=== PATIENT | male | born 1995 | race Two or more races ===

== ENCOUNTER 2017-03-22 17:56 | Emergency (ER) | payer OTHER ==
[~2017-03-22] VITALS: Ht 170.2 cm; Wt 63.5 kg
[2017-03-22] MEDS ORDERED: Bacitracin Oint UD TOPIC ONE (18:15)
--- NOTE | 2017-03-22 18:15 | Emergency Room Report ---
History of Present Illness General Chief Complaint: Skin Rash/Abscess Source: Patient Present Illness HPI 21-year-old male presents to the emergency department complaining of itchy insect bite on the left side of his back in addition to one on the right cheek times one hour. Patient states this occurred while at work and this has happened once before and he had a moderate reaction with the swelling and itching. Patient denies history of anaphylaxis denies difficulty swallowing. Denies lesions/rashes elsewhere on the body. Denies new medications or body washes or creams. Denies swelling of the lips, tongue , throat or airway. Denies wheezing, or shortness of breath. Denies recent travel, recent illness or ill contacts. denies blisters, oral lesions, or sloughing of the skin. last Tetanus is unk. Denies CP, Palpitations, LOC, AMS, dizziness, Changes in Vision , Sensation, paresthesias, or a sudden severe headache. Allergies: Coded Allergies: No Known Allergies (Unverified , 03/22/17) Patient History Past Medical History: see triage record Past Surgical History: none Pertinent Family History: none Immunizations: UTD Reviewed Nursing Documentation: PMH: Agreed, PSxH: Agreed Nursing Documentation-PMH Past Medical History: No Stated History Review of Systems All Other Systems: negative except mentioned in HPI Physical Exam Vital Signs Date Time Temp Pulse Resp B/P (MAP) Pulse Ox O2 Delivery O2 Flow Rate FiO2 03/22/17 18:02 98.1 67 18 130/77 99 Room Air Sp02 EP Interpretation: reviewed, normal General Appearance: no apparent distress, alert, GCS 15, non-toxic Head: normocephalic, atraumatic Eyes: bilateral eye normal inspection, bilateral eye PERRL ENT: hearing grossly normal, normal pharynx, no angioedema, normal voice, other - no stridor Neck: full range of motion Respiratory: normal inspection, lungs clear, normal breath sounds, no wheezing , speaking full sentences Cardiovascular #1: regular rate, rhythm Musculoskeletal: back normal, gait/station normal, normal range of motion Neurologic: alert, oriented x3, responsive, motor strength/tone normal, sensory intact, speech normal Psychiatric: judgement/insight normal, memory normal, mood/affect normal Skin: normal color, warm/dry, well hydrated, rash - discrete 1mm blanching erythematous swollen area of skin on the back and one on the right cheek, no blisters, no vessicles, no purulent d/c , no fluctuance palpated, no significant increased temperature to palpation, no bleeding. Lymphatic: no adenopathy Medical Decision Making PA Attestation Dr. Vasquez is my supervising Physician whom patient management has been discussed with. Diagnostic Impression: Primary Impression: Insect bite Qualified Codes: W57.XXXA - Bitten or stung by nonvenomous insect and other nonvenomous arthropods, initial encounter Additional Impression: Localized rash ER Course 21-year-old male presents to the emergency department complaining of itchy insect bite on the left side of his back in addition to one on the right cheek times one hour. Patient states this occurred while at work and this has happened once before and he had a moderate reaction with the swelling and itching. Patient denies history of anaphylaxis denies difficulty swallowing. Denies lesions/rashes elsewhere on the body. Denies new medications or body washes or creams. Denies swelling of the lips, tongue , throat or airway. Denies wheezing, or shortness of breath. Denies recent travel, recent illness or ill contacts. denies blisters, oral lesions, or sloughing of the skin. last Tetanus is unk. Denies CP, Palpitations, LOC, AMS, dizziness, Changes in Vision , Sensation, paresthesias, or a sudden severe headache. Ddx considered but are not limited to cellulitis, scabies, insect bites, tic bites, spider bites, contact dermatitis, Drug reaction, allergic reaction, fungal infection, lice. Vital signs: are WNL, pt. is afebrile H&PE are most consistent with insect bites and localized allergic reaction, no evidence of airway compromise or anaphylaxis. ORDERS: none required at this time, the diagnosis is clinical ED INTERVENTIONS: -Tdap -Bacitracin topical -hydrocortisone topical d/w pt. conservative treatment, and to follow up with a primary care provider. pt given a list of primary care clinics for follow up. d/w pt. to return to the ED with worsening or new symptoms. DISCHARGE: At this time pt. is stable for d/c to home. Will provide printed patient care instructions, and any necessary prescriptions. Care plan and follow up instructions have been discussed with the patient prior to discharge. Last Vital Signs Date Time Temp Pulse Resp B/P (MAP) Pulse Ox O2 Delivery O2 Flow Rate FiO2 03/22/17 18:02 98.1 67 18 130/77 99 Room Air Disposition: HOME, SELF-CARE Condition: Stable Scripts Bacitracin/Polymyxin B Sulfate (BACITRACIN-POLYMYXIN OINTMENT) 28.35 Gm Oint...g. 1 APPLIC TP BID, #28.3 GM Prov: Jolanta West 03/22/17 Hydrocortisone (Hydrocortisone Cream 2.5%) Y Cream.appl 1 APPLIC TP BID, #28.3 GM Prov: Jolanta West 03/22/17 Diphenhydramine Hcl (BENADRYL ALLERGY) 25 Mg Tablet 25 MG PO Q6HR, #20 TAB Prov: Jolanta West 03/22/17 Patient Instructions: Insect Bite, [id number] Additional Instructions: Take medications as directed. Follow up with a Primary Care Provider in 3-5 days, even if your symptoms have resolved. --Please review list of primary care clinics, if you do not already have a primary care provider Return sooner to ED if new symptoms occur, or current symptoms become worse. Do not drink alcohol, drive, or operate heavy machinery while taking Benadryl as this may cause drowsiness. - Please note that this Emergency Department Report was dictated using [employer] engineer technology software, occasionally this can lead to erroneous entry secondary to interpretation by the dictation equipment. Jolanta West Mar 22, 2017 18:15
[2017-03-22] MEDS ORDERED: HYDROCORTISONE30 G2 TP (18:16)
[2017-03-22] MEDS ORDERED: BENADRYL ALLERG25 M1 PO (18:16)
[2017-03-22] MEDS ORDERED: BACITRACIN-P28.35 GM TP (18:16)
[2017-03-22] MEDS ORDERED: Hydrocortisone 2.5% Oint 30gm TOPIC ONE (18:30)
[2017-03-22] MEDS ORDERED: Tetanus/Diptheria/Pertussis Vaccine 0.5ml Syr IM ONE (18:30)
[2017-03-22 18:46] VITALS: BP 130/77
[2017-03-22 18:49] VITALS: BP 130/77
== END 2017-03-22 18:50 | disposition home or self-care (01) ==
LOC: EMR 18:45
DX: S30.860A Insect bite (nonvenomous) of lower back and pelvis, initial encounter (principal); S00.86XA Insect bite (nonvenomous) of other part of head, initial encounter; W57.XXXA Bitten or stung by nonvenomous insect and other nonvenomous arthropods, initial encounter; Y92.89 Other specified places as the place of occurrence of the external cause; Z23 Encounter for immunization; R21 Rash and other nonspecific skin eruption
CPT/HCPCS: 90471; 90715; 99283